=== PATIENT | female | born 1980 | race Caucasian/White ===

== ENCOUNTER 2020-12-14 17:27 | Emergency (ER) | payer OTHER ==
[~2020-12-14] VITALS: Ht 162.6 cm; Wt 90.7 kg
[2020-12-14] MEDS ORDERED: IV NORMAL SALINE 1000 ML BAG IV ONE (18:00)
[2020-12-14 18:27] LABS: BASOPHILS % (AUTO) 0.4 % (0.0-2.0); EOSINOPHILS # (AUTO) 0.1 K/uL (0.0-0.7); EOSINOPHILS % (AUTO) 2.4 % (0.0-7.0); HEMATOCRIT 41.6 % (31.2-41.9); HEMOGLOBIN 14.2 g/dL (10.9-14.3); LYMPHOCYTES # (AUTO) 1.5 K/uL (20.0-40.0); LYMPHOCYTES % (AUTO) 30.8 % (20.5-51.5); MEAN CORPUSCULAR HEMOGLOBIN 32.9 uug (24.7-32.8); MEAN CORPUSCULAR HGB CONC 34 g/dL (32.3-35.6); MEAN CORPUSCULAR VOLUME 96.4 fL (75.5-95.3); MONOCYTES # (AUTO) 0.5 K/uL (2.0-10.0); MONOCYTES % (AUTO) 10.2 % (0.0-11.0); NEUTROPHILS # (AUTO) 2.8 K/uL (1.8-8.9); NEUTROPHILS % (AUTO) 56.2 % (38.5-71.5); PLATELET COUNT (AUTO) 208 K/uL (179-408); RED BLOOD CELL COUNT(AUTO) 4.31 MIL/uL (3.63-4.92); WHITE BLOOD COUNT (AUTO) 4.9 K/uL (3.8-11.8)
--- NOTE | 2020-12-14 18:33 | NUR ---
PT IS IN ROOM #2B. DR LY EVALUATED THE PT.
[2020-12-14 18:38] LABS: CARBON DIOXIDE 24 mmol/L (21-32); CHLORIDE 103 mmol/L (98-107); CREATININE 0.6 mg/dL (0.6-1.3); GLUCOSE 108 mg/dL (74-106); POTASSIUM 3.8 mmol/L (3.5-5.1); UREA NITROGEN, BLOOD 6 mg/dL (7-18)
[2020-12-14] MEDS ORDERED: KETOROLAC TROMETHAMINE 30 MG INJ ONE (18:46)
[2020-12-14 18:47] LABS: ETHANOL 261 MG/DL (0-0)
[2020-12-14 18:51] LABS: ALANINE AMINOTRANSFERASE 124 U/L (14-59); ALKALINE PHOSPHATASE 60 U/L (50-136); ASPARTATE AMINOTRANSFERASE 74 U/L (15-37); BILIRUBIN,DIRECT 0.2 mg/dL (0.0-0.2); BILIRUBIN,TOTAL 0.4 mg/dL (0.2-1.0); TOTAL PROTEIN, SERUM 7.9 g/dL (6.4-8.2)
[2020-12-14 18:52] LABS: ACETAMINOPHEN < 2.0 ug/mL (10-30)
[2020-12-14] MEDS ORDERED: KETOROLAC TROMETHAMINE 30 MG INJ IVP ONE (19:30)
--- NOTE | 2020-12-14 19:35 | NUR ---
PATIENT OUT OF UNIT FOR CT SCAN VIIA WHEELCHAIR.
--- NOTE | 2020-12-14 19:47 | NUR ---
PATIENT BACK FROM CT SCAN VIA GURNY WITH NO DISTRESS NOTED.
--- NOTE | 2020-12-14 20:21 | NUR ---
RIGHT AC AND LEFT WRIST IV removed. Catheter intact and site benign. Pressure and 4x4 gauze applied to site. No bleeding noted.
--- NOTE | 2020-12-14 20:21 | NUR ---
Patient discharged to home in stable condition WITH SON TAKING PATIENT HOME. Written and verbal after care instructions given. Patient verbalizes understanding of instructions. Stressed follow up or return to ER for worsening s/s.
[2020-12-14 20:23] VITALS: BP 118/90
== END 2020-12-14 20:24 | disposition home or self-care (01) ==
LOC: ER 17:29
DX: F10.229 Alcohol dependence with intoxication, unspecified (principal); Y90.8 Blood alcohol level of 240 mg/100 ml or more; R51.9 Headache, unspecified; H55.00 Unspecified nystagmus; R79.89 Other specified abnormal findings of blood chemistry; R29.6 Repeated falls
CPT/HCPCS: 36415; 70450; 71045; 72125; 80048; 80076; 80299; 80320; 82140; 82550; 83605; 84484; 84702; 85025; 93005; 96361; 96374; 99285; J1885; 70030-TC; A4663; G0480; J7030